=== PATIENT | female | born 1935 | race Hispanic/Latino ===

== ENCOUNTER 2018-04-03 22:54 | Emergency (ER) | payer MEDICARE ==
[2018-04-03 23:47] LABS: EOSINOPHILS % (AUTO) 1.7 % (0.0-8.0); HEMATOCRIT 39.6 % (36-48); LYMPHOCYTES % (AUTO) 25.5 % (21.0-51.0); MEAN CORPUSCULAR HEMOGLOBIN 28.8 pg (27.0-33.0); MEAN CORPUSCULAR HGB CONC 33.8 g/dL (32.0-36.0); MEAN CORPUSCULAR VOLUME 85.1 fL (79-99); MONOCYTES % (AUTO) 9.3 % (3.0-13.0); NEUTROPHILS % (AUTO) 62.5 % (40.0-77.0); PLATELET COUNT (AUTO) 223 K/uL (130-400); RED BLOOD CELL COUNT(AUTO) 4.65 MIL/uL (4.00-5.50); RED CELL DISTRIBUTION WIDTH 13.9 % (11.0-15.5); WHITE BLOOD COUNT (AUTO) 7.2 K/uL (4.8-10.8)
[2018-04-03 23:55] LABS: POTASSIUM 4.6 mmol/L (3.5-5.1)
[2018-04-03 23:59] LABS: BILIRUBIN,TOTAL 0.4 mg/dL (0.2-1.0); TOTAL PROTEIN, SERUM 7.8 g/dL (6.0-8.3)
== END 2018-04-04 02:54 | disposition home or self-care (01) ==
LOC: EDH 22:54
DX: I10 Essential (primary) hypertension (principal); J30.2 Other seasonal allergic rhinitis; E78.5 Hyperlipidemia, unspecified; Z88.6 Allergy status to analgesic agent; Z90.49 Acquired absence of other specified parts of digestive tract
CPT/HCPCS: 36415; 80053; 84484; 85025; 93005

== ENCOUNTER 2019-07-29 06:20 | Emergency (ER) | payer MEDICARE ==
[2019-07-29] MEDS ORDERED: ONDANSETRON HCL 4 MG/2 ML VIAL ONE (08:35)
[2019-07-29] MEDS ORDERED: SODIUM CHLORIDE 0.9% 1000ML 1,000 ML IV ONE (08:36)
[2019-07-29 08:41] LABS: BASOPHILS % (AUTO) 0.8 % (0.0-5.0); EOSINOPHILS % (AUTO) 0.8 % (0.0-8.0); HEMATOCRIT 37.9 % (36-48); LYMPHOCYTES % (AUTO) 13.7 % (21.0-51.0); MEAN CORPUSCULAR HEMOGLOBIN 28.9 pg (27.0-33.0); MEAN CORPUSCULAR HGB CONC 33.6 g/dL (32.0-36.0); MONOCYTES % (AUTO) 7.3 % (3.0-13.0); NEUTROPHILS % (AUTO) 77.4 % (40.0-77.0); PLATELET COUNT (AUTO) 219 K/uL (130-400); RED CELL DISTRIBUTION WIDTH 13.9 % (11.0-15.5); WHITE BLOOD COUNT (AUTO) 5.3 K/uL (4.8-10.8)
[2019-07-29 08:52] LABS: APPEARANCE,URINE Clear (CLEAR); BILIRUBIN,URINE Negative (NEGATIVE); COLOR,URINE Yellow (YELLOW); GLUCOSE, URINE (UA) Negative (NEGATIVE); KETONES,URINE Negative (NEGATIVE); LEUKOCYTE ESTERASE ,URINE Trace (NEGATIVE); NITRATE,URINE Negative (NEGATIVE); OCCULT BLOOD,URINE Negative (NEGATIVE); PROTEIN,URINE Negative (NEGATIVE); UROBILINOGEN,URINE 0.2 mg/dL (0.2-1.0)
[2019-07-29 08:53] LABS: CREATININE 0.9 mg/dL (0.5-1.5); POTASSIUM 4.6 mmol/L (3.5-5.1)
[2019-07-29 09:22] LABS: ALBUMIN 3.7 g/dL (3.5-5.0); BILIRUBIN,TOTAL 0.4 mg/dL (0.2-1.0); TOTAL PROTEIN, SERUM 7.2 g/dL (6.0-8.3)
[2019-07-29 09:27] LABS: BACTERIA,URINE Few /HPF (None Seen); RBC,URINE 0-1 /HPF (0-1); WBC,URINE 0-1 /HPF (0-1)
== END 2019-07-29 10:37 | disposition home or self-care (01) ==
LOC: EDH 06:20
DX: K52.9 Noninfective gastroenteritis and colitis, unspecified (principal); E86.0 Dehydration; I10 Essential (primary) hypertension; E78.5 Hyperlipidemia, unspecified; Z88.6 Allergy status to analgesic agent; Z90.49 Acquired absence of other specified parts of digestive tract
CPT/HCPCS: 36415; 80053; 81001; 85025; 96361; 96374; 99284; J2405; J7030

== ENCOUNTER 2025-06-05 15:27 | Emergency (ER) | payer OTHER, MEDICARE ==
[~2025-06-05] VITALS: Ht 160 cm; Wt 82.1 kg
--- NOTE | 2025-06-05 18:24 | HMCIMG ---
EXAM: CT Head Without IV contrast. CLINICAL HISTORY: fall, head trauma TECHNIQUE: Axial computed tomography images of the head/brain without intravenous contrast. COMPARISON: None provided. FINDINGS: BRAIN: No evidence of acute hemorrhage. No mass lesion. No CT evidence for acute territorial infarct. No midline shift or extra-axial collections. VENTRICLES: No hydrocephalus. ORBITS: The orbits are unremarkable. SINUSES AND MASTOIDS: The paranasal sinuses and mastoid air cells are clear. BONES: No fracture. SOFT TISSUES: Focal soft tissue edema overlying the left frontal skull. IMPRESSION: No acute intracranial abnormality. /[place]
--- NOTE | 2025-06-05 18:57 | HMCIMG ---
EXAM: CR left Knee, 2 View. CLINICAL HISTORY: fall, pain COMPARISON: None provided. FINDINGS: BONES: No acute fracture or aggressive appearing osseous lesion. JOINTS: There is medial compartment predominant mild tricompartmental left knee joint osteoarthritis. There is a small suprapatellar knee joint effusion. SOFT TISSUES: The soft tissues are unremarkable. IMPRESSION: 1. No acute osseous injury. 2. Mild tricompartmental left knee osteoarthritis with small suprapatellar joint effusion. /[place]
--- NOTE | 2025-06-05 18:58 | HMCIMG ---
EXAM: CR right Wrist, 3 View. CLINICAL HISTORY: fall, pain COMPARISON: None provided. FINDINGS: Mildly displaced, comminuted intra-articular fracture of the distal radius. Mildly displaced fracture of the tip of the ulnar styloid process. Bones are markedly osteopenic. Joint spaces remain anatomically aligned. Marked thumb basal joint osteoarthritis. There is edema at the wrist. IMPRESSION: 1. Mildly displaced, comminuted intra-articular fracture of the distal radius and mildly displaced fracture of the tip of the ulnar styloid process. 2. Wrist edema. /[place]
--- NOTE | 2025-06-05 19:19 | ERN ---
ED Note History of Present Illness Stated Complaint: FALL Chief Complaint: Mechanical Fall Time Seen by MD: 17:10 Time Seen by Midlevel: 17:10 Dictation: The patient is an 89-year-old female with a history of hypertension, cholecystectomy, CHF who presents to the emergency department after an accidental trip and fall onset 2:30 p.m.. Patient reports she tripped over her sandal causing her room fall on her left knee and her right hand an injuring her left side of her head. Patient denies any nausea or vomiting. Denies any LOC. reports taking aspirin. Patient denies any neck pain, back pain, chest pain. Denies any other injuries. Allergies: Coded Allergies: codeine (Unverified Allergy, Unknown, 07/29/19) Past Medical History Past Medical History: CHF, High Cholesterol, Hypertension Surgical History: Cholecystectomy RN Note Reviewed/Agreed w/PFSH: Yes Review of System Dictation Constitutional: Negative for fever,chills, and weight loss Eyes: Negative for injury, pain,redness, and discharge ENT: Negative for injury,pain or swelling Cardiovascular: Negative for chest pain, palpitations, and edema Respiratory: Negative for shortness of breath, cough, and wheezing, Abdomen/GI: Negative for abdominal pain, nausea, vomiting, diarrhea, and consti pation Back: Negative for injury and pain : Negative for injury, bleeding and discharge MS/Extremity: Negative for injury and deformity positive for wrist pain Skin: Negative for rash, and discoloration positive for abrasion to left knee Neuro: Negative for weakness, numbness, tingling, and seizure positive for headache Psych: Negative for suicide ideation, homicidal ideation, and hallucinations Initial Vital Sign VS Vital Signs Date Time Temp Pulse Resp B/P (MAP) Pulse Ox O2 Delivery O2 Flow Rate FiO2 06/05/25 15:33 98.1 85 18 192/69 99 Room Air 0 06/05/25 15:37 21 Physical Exam Dictation Vital Signs reviewed General Appearance: Alert, oriented x 3, no acute distress, well developed, nourished. Head and Face: Hematoma noted to left forehead Eyes: PERRL, pink conjunctivas, eyelid no trauma, anterior chamber with arcus senilis. Ears: Pinnas intact and no signs of trauma or erythema ear canals clear and no discharge TM no erythema Nose: No discharge, no bleeding. Oropharynx: Mouth normal, tongue pink. pharynx clear,no erythema, tonsils no exudates, no abscesses noted, mucous membrane moist Neck: Supple, non-tender, no thyromegaly, no masses, no JVD, no bruits Breast:Deferred Chest:No tenderness, no crepitus, no paradoxical movement, no retractions Lungs:Clear, well-ventilated, symmetric, no rales, no wheezing, no rhonchi, no stridor, good breath sounds bilaterally Heart: Regular rate, regular rhythm, no murmur, no gallops Vascular: no peripheral edema, Abdomen: Soft, positive bowel sounds, nondistended, no guarding, nontender, no rebound, no masses no hepatomegaly, no splenomegaly, no Macario's sign, no hernias. Rectal: Deferred Genital: Deferred Neurological: Normal speech, motor function intact, sensory function intact Musculoskeletal: Neck nontender, full range of motion, back nontender, full range of motion, Extremities: nontender, full range of motion , mild deformity to right wrist, cap refill less than 2 seconds, radial pulse 3 + Skin: Color pink, dry, no turgor, no rash, no lacerations, no contusions. Mild abrasion to left knee, no active bleeding Lymphatic: Deferred Results (Laboratory/Radiology) Laboratory/Radiology REASON: fall, head trauma ORDERING PHYSICIAN: EL [facility] SUR[employer] W[employer] MANAGER PROCEDURE: HEAD WO - CT HEAD/BRAIN W/O CONTRAST EXAM: CT Head Without IV contrast. CLINICAL HISTORY: fall, head trauma TECHNIQUE: Axial computed tomography images of the head/brain without intravenous contrast. COMPARISON: None provided. FINDINGS: BRAIN: No evidence of acute hemorrhage. No mass lesion. No CT evidence for acute territorial infarct. No midline shift or extra-axial collections. VENTRICLES: No hydrocephalus. ORBITS: The orbits are unremarkable. SINUSES AND MASTOIDS: The paranasal sinuses and mastoid air cells are clear. BONES: No fracture. SOFT TISSUES: Focal soft tissue edema overlying the left frontal skull. IMPRESSION: No acute intracranial abnormality. /[place] REASON: fall, pain ORDERING PHYSICIAN: EL [facility] SURFACE W[employer] MANAGER PROCEDURE: KNEE 3V LT - KNEE 3VWS LT EXAM: CR left Knee, 2 View. CLINICAL HISTORY: fall, pain COMPARISON: None provided. FINDINGS: BONES: No acute fracture or aggressive appearing osseous lesion. JOINTS: There is medial compartment predominant mild tricompartmental left knee joint osteoarthritis. There is a small suprapatellar knee joint effusion. SOFT TISSUES: The soft tissues are unremarkable. IMPRESSION: 1. No acute osseous injury. 2. Mild tricompartmental left knee osteoarthritis with small suprapatellar joint effusion. /[place] REASON: fall, pain ORDERING PHYSICIAN: EL PARK PROCEDURE: WRST 3V RT - WRIST COMP 3+VWS RT EXAM: CR right Wrist, 3 View. CLINICAL HISTORY: fall, pain COMPARISON: None provided. FINDINGS: Mildly displaced, comminuted intra-articular fracture of the distal radius. Mildly displaced fracture of the tip of the ulnar styloid process. Bones are markedly osteopenic. Joint spaces remain anatomically aligned. Marked thumb basal joint osteoarthritis. There is edema at the wrist. IMPRESSION: 1. Mildly displaced, comminuted intra-articular fracture of the distal radius and mildly displaced fracture of the tip of the ulnar styloid process. 2. Wrist edema. /[place] Labs Reviewed?: Yes ED Course ED Course Orders Procedure Category Date Status Time Ct Head/Brain W/O CT 06/05/25 Resulted Contrast 17:17 Wrist Comp 3+Vws Rt RAD 06/05/25 Resulted 17:17 Knee 3vws Lt RAD 06/05/25 Resulted 17:17 Acetaminophen 500mg PHA 06/05/25 Complete Tab (Tylenol 500mg T 17:30 Wound Care ([facility]) CPOE 06/05/25 Transmitted 17:17 Neomy PHA 06/05/25 Complete Sulf/Bacitra/Polymyxin 17:30 Current Medications Medications (Trade) Dose Ordered Sig/Katelyn Route PRN Reason Start Time Stop Time Status Last Admin Dose Admin Acetaminophen (TYLenol 500MG TAB) 1,000 mg ONCE ONCE PO 06/05/25 17:30 06/05/25 17:31 DC Neomycin/ Polymyxin/ Bacitracin (Triple Antibiotic Ointment) 1 appl ONCE ONCE TP 06/05/25 17:30 06/05/25 17:31 DC Vital Signs Date Time Temp Pulse Resp B/P (MAP) Pulse Ox O2 Delivery O2 Flow Rate FiO2 06/05/25 19:21 96.3 75 18 191/70 100 Room Air* 0 21 06/05/25 15:37 98.1 85 18 195/92 99 Room Air* 0 21 06/05/25 15:33 98.1 85 18 192/69 99 Room Air 0 Medical Decision Making MDM The patient is an 89-year-old female with a history of hypertension, cholecystectomy, CHF who presents to the emergency department after an accidental trip and fall onset 2:30 p.m.. Patient reports she tripped over her sandal causing her room fall on her left knee and her right hand an injuring her left side of her head. Patient denies any nausea or vomiting. Denies any LOC. reports taking aspirin. Patient denies any neck pain, back pain, chest pain. Denies any other injuries. CT head showed no acute intracranial bleeding, x-ray showed mild displaced comminuted intra-articular fracture of the distal radius and mildly displaced fracture of the tip of the ulnar styloid process with mild edema. Discussed case with Dr. Manning ortho, patient can follow up in clinic and have a volor sp lint placed. On physical exam patient has had no acute distress, nontoxic appearance. Patient will be discharged to follow up with. Differential diagnosis: Intracerebral hemorrhage, wrist fracture, wrist sprain, head contusion, left knee sprain Need for hospitalization: Patient does not meet criteria for hospitalization. There are no social concerns with this patient. DX & DISP Disposition: Discharge Departure Impression: Primary Impression: Right wrist fracture Additional Impressions: Fall, Head contusion Condition: Stable Additional Instructions: You fractured your right wrist. Please follow up with the orthopedic (bone doctor). If anything worsens please return to ER. FOLLOW-UP WITH PRIMARY CARE PROVIDER IN 1 TO 2 DAYS. TAKE MEDICATIONS DIRECTED HERE IN THE EMERGENCY ROOM. OKAY TO CONTINUE HOME MEDICATIONS UNLESS OTHERWISE DISCUSSED DURING YOUR VISIT IN THE EMERGENCY ROOM TODAY. RETURN TO YOUR NEAREST EMERGENCY ROOM IF SYMPTOMS WORSEN OR IF THERE IS NO IMPROVEMENT. CALL 911 IF YOU NEED IMMEDIATE ASSISTANCE. TAKE TYLENOL [id number] NEEDED AND IF NO CONTRAINDICATIONS ARE PRESENT. INCREASE ORAL HYDRATION. A WOUND CULTURE OR URINE CULTURE WAS ORDERED HERE IN THE EMERGENCY ROOM DEPARTMENT PLEASE FOLLOW-UP WITH PRIMARY CARE PROVIDER AND ADVISE THEM TO GET REPEAT PORTS FROM OUR FACILITY. IF YOU HAD ANY TOMI WRAP/SPLINTS THAT WERE APPLIED HERE, PLEASE DO NOT REMOVE THEM UNTIL YOU SEE YOUR PRIMARY CARE OR SPECIALTY. Referrals: SELF,REFERRAL (PCP) TWIN MANNING MD Time of Disposition: 19:36 I have reviewed the case, and I agree with, Diagnosis and Plan [facility] Jun 05, 2025 19:19
[2025-06-05 19:21] VITALS: TEMP 96.3
[2025-06-05] MEDS: NEOMY SULF/BACITRA/POLYMYXIN B 1 EACH PACKET TP ONE (19:48)
[2025-06-05 20:20] VITALS: BP 177/75; PULSE 63; RESP 18; O2SAT 100
== END 2025-06-05 20:23 | disposition home or self-care (01) ==
LOC: EDH 15:27
DX: S52.571A Other intraarticular fracture of lower end of right radius, initial encounter for closed fracture (principal); S52.611A Displaced fracture of right ulna styloid process, initial encounter for closed fracture; S00.93XA Contusion of unspecified part of head, initial encounter; E78.00 Pure hypercholesterolemia, unspecified; I11.0 Hypertensive heart disease with heart failure; I50.9 Heart failure, unspecified; Z88.5 Allergy status to narcotic agent; Z90.49 Acquired absence of other specified parts of digestive tract; W01.0XXA Fall on same level from slipping, tripping and stumbling without subsequent striking against object, initial encounter; Y93.89 Activity, other specified; Y92.89 Other specified places as the place of occurrence of the external cause; Y99.8 Other external cause status
CPT/HCPCS: 29125; 70450; 73110; 73562; 99284